=== PATIENT | female | born 1965 | race Caucasian/White ===

== ENCOUNTER 2019-01-29 10:12 | Emergency (ER) | payer BC ==
[2019-01-29 10:19] VITALS: BP 111/80
--- NOTE | 2019-01-29 10:38 | ER Report ---
History and Physical Time Seen By MD: 10:37 Hx. of Stated Complaint: patient states around 0500 she slipped on ice; states that she landed on her chest and right side. HPI/ROS CHIEF COMPLAINT: slip/fall, short of breath HISTORY OF PRESENT ILLNESS: This is a 53 year old female. She slipped on her porch, fell and the corner of the step hit her in the lower ribs/diaphragm area. She had trouble breathing and took some time to catch her breath. Denies any pain at this time, but feels like she cannot take a deep breath. Also hit the side of her head, no loss of consciousness. Has been feeling foggy. No headache at this time. No nausea. No vision changes. Not dizzy. No loss of memory. No neck or back pain. Allergies: Coded Allergies: No Known Drug Allergies (Unverified , 01/29/19) Home Meds No Active Prescriptions or Reported Meds Reviewed Nurses Notes: Yes Constitutional Vital Sign - Last 24 Hours 01/29/19 10:19 Temp 97.9 Pulse 96 Resp 18 B/P (MAP) 111/80 Pulse Ox 94 O2 Delivery Room Air Physical Exam General Appearance: Alert, mild distress due to feeling of not being able to breath well. Eyes: Pupils equal and round no injection. Reactive to light. Extraocular movements are intact. ENT: Normal oral mucosa. Moist mucous membranes. Tympanic membranes are normal. Neck: Neck is supple and non tender. Respiratory: Chest has some tenderness to the lower sternum and the right condral margins, lungs are clear to auscultation. Cardiac: regular rate and rhythm Gastrointestinal: Abdomen is soft and non tender, no masses, bowel sounds normal. Musculoskeletal: Extremities have full range of motion. Non tender. Skin: No rashes or lesions. Neuro: Normal sensation, no deficits. Alert and oriented x4. Normal cranial nerves. DIFFERENTIAL DIAGNOSIS: After history and physical exam differential diagnosis was considered for fall with difficulty breathing, mild chest wall pain, and symptoms suggeting concussion, but mild. Medical Decision Making EKG/Imaging Imaging Exam type: RIBS RIGHT History: fall, short of breath, sternal and right pain Comparison: Two view chest performed today. Findings: Two views of the right ribs were submitted no definite acute-appearing right rib fractures seen. No evidence of pleural effusion or pneumothorax IMPRESSION: 1. No definite right rib fracture seen Report Dictated By: Damaris Badillo MD at 01/29/2019 11:14 AM Exam type: CHEST PA LAT History: fall, short of breath, sternal and right pain Comparison: Right rib series performed today. Findings: The lungs are free of acute effusions, infiltrates or edema. There is no evidence of a pneumothorax or pneumomediastinum. The cardiac silhouette is normal size. The trachea is midline. IMPRESSION: 1. No acute cardiopulmonary process is seen Report Dictated By: Damaris Badillo MD at 01/29/2019 11:16 AM ED Course/Re-evaluation ED Course Imaging unremarkable. Pain in ribs is mild. Shortness of breath still there, but mild, and vital signs are stable. Has mild headache now. Discussed doing a CT scan, but with mild symptoms of concussion, we did not think it was necessary after discussion. Talked about treatment of the rib/chest contusion and the concussion. Decision to Disposition Date: January 29, 2019 Decision to Disposition Time: 11:39 Depart Departure Latest Vital Signs Vital Signs Date Time Temp Pulse Resp B/P (MAP) Pulse Ox O2 Delivery O2 Flow Rate FiO2 01/29/19 10:19 97.9 96 18 111/80 94 Room Air Impression: Primary Impression: Chest wall contusion Additional Impressions: Concussion Fall from standing Condition: Improved Disposition: HOME OR SELF-CARE New Scripts No Active Prescriptions or Reported Meds Patient Instructions: Concussion (ED) Additional Instructions: If shortness of breath is likely due to the fall impacting the area of the ribs and diaphragm. Vital signs remained stable, good oxygenation, and normal x-rays. The difficulty concentrating and headache are likely due to mild concussion. No other neurologic changes on exam today. Return to the ER if you have worsening symptoms, especially the worst headache of her life or any confusion or severe nausea and vomiting. Concussion symptoms include: headache, nausea/vomiting, dizziness, difficulty concentrating, blurred vision. These symptoms can be mild or moderate. If symptoms become severe, follow-up evaluation is needed. Avoid any heavy physical activity and avoid any activities that may cause repeat head injury. Concussion symptoms can last for days or weeks. There is no way to predict how long these will last. It is okay to sleep after a head injury. Use Tylenol or ibuprofen as needed for pain. Avoid anything with aspirin until symptoms resolve Problem Qualifiers Primary Impression: Chest wall contusion Encounter type: initial encounter Laterality: right Qualified Codes: S20.211A - Contusion of right front wall of thorax, initial encounter Additional Impressions: Concussion Encounter type: initial encounter Loss of consciousness presence/duration: without LOC Qualified Codes: S06.0X0A - Concussion without loss of consciousness, initial encounter Fall from standing Encounter type: initial encounter Qualified Codes: W19.XXXA - Unspecified fall, initial encounter CHARLINE MIKE MD January 29, 2019 10:37
--- NOTE | 2019-01-29 11:20 | RADIOLOGY IMAGING REPORT ---
FACILITY: PATIENT NAME: Fay Stephens : 1965 MR: [id number] V: [id number] EXAM DATE: ORDERING PHYSICIAN: CHARLINE MIKE TECHNOLOGIST: Location: [facility] Patient: Fay Stephens : 1965 Visit/Account:[id number] Date of Sevice: 01/29/2019 Exam type: RIBS RIGHT History: fall, short of breath, sternal and right pain Comparison: Two view chest performed today. Findings: Two views of the right ribs were submitted no definite acute-appearing right rib fractures seen. No evidence of pleural effusion or pneumothorax IMPRESSION: 1. No definite right rib fracture seen Report Dictated By: Damaris Badillo MD at 01/29/2019 11:14 AM Report E-Signed By: Damaris Badillo MD at 01/29/2019 11:16 AM WSN:[email or web address]
--- NOTE | 2019-01-29 11:21 | RADIOLOGY IMAGING REPORT ---
FACILITY: [facility] [place] PATIENT NAME: Fay Stephens : 1965 MR: [id number] V: [id number] EXAM DATE: ORDERING PHYSICIAN: CHARLINE MIKE TECHNOLOGIST: Location: [facility] [place] Patient: Fay Stephens : 1965 Visit/Account:[id number] Date of Sevice: 01/29/2019 Exam type: CHEST PA LAT History: fall, short of breath, sternal and right pain Comparison: Right rib series performed today. Findings: The lungs are free of acute effusions, infiltrates or edema. There is no evidence of a pneumothorax or pneumomediastinum. The cardiac silhouette is normal size. The trachea is midline. IMPRESSION: 1. No acute cardiopulmonary process is seen Report Dictated By: Damaris Badillo MD at 01/29/2019 11:16 AM Report E-Signed By: Damaris Badillo MD at 01/29/2019 11:16 AM WSN:[email or web address]
[2019-01-29] MEDS ORDERED: IBUPROFEN 800 MG TAB PO ONE (11:40)
== END 2019-01-29 11:49 | disposition home or self-care (01) ==
LOC: ER 10:40
DX: S20.211A Contusion of right front wall of thorax, initial encounter (principal); S06.0X0A Concussion without loss of consciousness, initial encounter; W01.198A Fall on same level from slipping, tripping and stumbling with subsequent striking against other object, initial encounter
CPT/HCPCS: 71046; 71100; 99284